=== PATIENT | female | born 1995 | race Caucasian/White ===

== ENCOUNTER 2023-05-19 08:26 | Outpatient (CLI) | payer OTHER, SELFPAY ==
[2023-05-19 14:22] LABS: Chlamydia DNA Amplified* NOT DETECTED (No Detected); GC DNA Amplified* NOT DETECTED (No Detected)
== END 2023-05-19 08:27 | disposition home or self-care (01) ==
PROVIDERS: PCP Physician Assistant Medical; Visit Provider Family Medicine
DX: Z00.00 Encounter for general adult medical examination without abnormal findings (principal); R53.83 Other fatigue; Z11.3 Encounter for screening for infections with a predominantly sexual mode of transmission
CPT/HCPCS: 84443; 87491; 87591

== ENCOUNTER 2024-03-05 12:30 | Outpatient (CLI) | payer OTHER, SELFPAY ==
[2024-03-05 16:13] LABS: Chlamydia DNA Amplified* NOT DETECTED (No Detected); GC DNA Amplified* NOT DETECTED (No Detected)
[2024-03-07 21:36] LABS: HPV Source Cervix; HPV, High Risk by TMA Not Detected
== END 2024-03-05 12:31 | disposition home or self-care (01) ==
PROVIDERS: PCP Physician Assistant Medical; Visit Provider Registered Nurse
DX: Z01.419 Encounter for gynecological examination (general) (routine) without abnormal findings (principal); R53.83 Other fatigue; Z11.3 Encounter for screening for infections with a predominantly sexual mode of transmission; Z12.4 Encounter for screening for malignant neoplasm of cervix; Z13.6 Encounter for screening for cardiovascular disorders; Z13.1 Encounter for screening for diabetes mellitus; Z13.29 Encounter for screening for other suspected endocrine disorder; Z13.820 Encounter for screening for osteoporosis
CPT/HCPCS: 82306; 82728; 82947; 84443; 87491; 87591; 87624; 87625; 88141; 88142

== ENCOUNTER 2025-03-06 14:49 | Outpatient (CLI) | payer OTHER, SELFPAY ==
[2025-03-06 23:21] LABS: Chlamydia DNA Amplified* NOT DETECTED (No Detected); GC DNA Amplified* NOT DETECTED (No Detected)
== END 2025-03-06 14:50 | disposition home or self-care (01) ==
LOC: FRMREF 14:49
PROVIDERS: PCP Physician Assistant Medical; Visit Provider Registered Nurse
DX: Z00.00 Encounter for general adult medical examination without abnormal findings (principal)
CPT/HCPCS: 87491; 87591